=== PATIENT | female | born 1980 | race Caucasian/White ===

== ENCOUNTER 2018-10-13 07:49 | Emergency (ER) | payer OTHER ==
[~2018-10-13] VITALS: Ht 162.6 cm; Wt 77.1 kg
[2018-10-13 08:00] VITALS: BP 122/71
--- NOTE | 2018-10-13 08:23 | PHYS DOC ---
Past History Past Surgical History: Smoking: Cigarettes, Less than 1pk/day Alcohol Use: None Drug Use: None Adult General Chief Complaint Chief Complaint: PAIN ON URINATION HPI HPI Patient is a 38-year-old female who presents with dysuria since yesterday. Initially got better with increased fluid intake however became worse at approximately 3:00 this morning. Patient is noted some blood in the urine. Denies any back or flank pain. Denies any fever. Notes that she had urgency even before increasing her water intake. This is like her previous urinary tract infections. Patient denies any vaginal bleeding or discharge. Symptoms are mild to moderate. No home medicines have been attempted.[] Review of Systems Review of Systems Constitutional: Denies fever or chills [] Eyes: Denies change in visual acuity, redness, or eye pain [] HENT: Denies nasal congestion or sore throat [] Respiratory: Denies cough or shortness of breath [] Cardiovascular: No chest pain or palpitations[] GI: Denies abdominal pain, nausea, vomiting, bloody stools or diarrhea [] : See history of present illness[] Musculoskeletal: Denies back pain or joint pain [] Integument: Denies rash or skin lesions [] Neurologic: Denies headache, focal weakness or sensory changes [] Endocrine: Denies polyuria or polydipsia [] All other systems were reviewed and found to be within normal limits, except as documented in this note. Physical Exam Physical Exam Constitutional: Well developed, well nourished, no acute distress, non-toxic appearance. [] HENT: Normocephalic, atraumatic, bilateral external ears normal, oropharynx moist, no oral exudates, nose normal. [] Eyes: PERRLA, EOMI, conjunctiva normal, no discharge. [] Neck: Normal range of motion, no tenderness, supple, no stridor. [] Cardiovascular:Heart rate regular rhythm, no murmur [] Lungs & Thorax: Bilateral breath sounds clear to auscultation [] Abdomen: Bowel sounds normal, soft, no tenderness, no masses, no pulsatile masses. [] Skin: Warm, dry, no erythema, no rash. [] Back: No tenderness, no CVA tenderness. [] Extremities: No tenderness, no cyanosis, no clubbing, ROM intact, no edema. [] Neurologic: Alert and oriented X 3, normal motor function, normal sensory function, no focal deficits noted. [] Psychologic: Affect normal, judgement normal, mood normal. [] EKG EKG [] Radiology/Procedures Radiology/Procedures [] Course & Med Decision Making Course & Med Decision Making Pertinent Labs and Imaging studies reviewed. (See chart for details) ED course: Patient arrived, was placed in bed, and tolerated exam well. She remained in stable condition. After the return of lab studies, these were discussed with the patient who voiced understanding. All questions were answered. Patient was discharged in improved condition. Medical decision making: Patient appears to have urinary tract infection, no evidence of pyelonephritis, no evidence of systemic toxicity. Will prescribe Diflucan due to her history of having previous yeast infections with prior antibiotics.[] Dragon Disclaimer Dragon Disclaimer This electronic medical record was generated, in whole or in part, using a voice recognition dictation system. Departure Departure: Impression: Primary Impression: Urinary tract infection Disposition: HOME, SELF-CARE Condition: IMPROVED Referrals: JOSE MANUEL STANLEY PA-C (PCP) Follow-up in 2 days Patient Instructions: Urinary Tract Infection Additional Instructions: Drink plenty of fluids. Take the medication as prescribed. Eat yogurt, drink kefir or kombucha while on the antibiotics to help protect gut health. Do not take the Diflucan until after the antibiotics are completed, and only if you develop a yeast infection. Return to the ER if worsening pain or any other concerns. Scripts Fluconazole (DIFLUCAN) 150 Mg Tablet 1 TAB PO ONCE for candidiasis, #1 TAB 1 Refill Prov: JESS HENRY DO 10/13/18 Phenazopyridine Hcl (PYRIDIUM) 200 Mg Tablet 200 MG PO TID for dysurea for 2 Days, #6 TAB Prov: JESS HENRY DO 10/13/18 Cephalexin (KEFLEX) 500 Mg Capsule 500 MG PO TID for UTI for 7 Days, #21 CAP Prov: JESS HENRY DO 10/13/18 Problem Qualifiers Primary Impression: Urinary tract infection Urinary tract infection type: site unspecified Hematuria presence: with hematuria Qualified Codes: N39.0 - Urinary tract infection, site not specified ; R31.9 - Hematuria, unspecified JESS HENRY DO Oct 13, 2018 08:23
[2018-10-13 09:00] LABS: BILIRUBIN,URINE NEG (NEG); CLARITY,URINE CLOUDY; COLOR,URINE YELLOW; GLUCOSE,URINE NEG (NEG); NITRITE,URINE NEG (NEG); UROBILINOGEN,URINE 0.2 mg/dL (0.2 mg/dL)
[2018-10-13 09:01] LABS: BACTERIA,URINE MOD /HPF (0-FEW); SQUAMOUS EPITHELIAL CELL,UR FEW /LPF; WBC,URINE >40 /HPF (0-4)
[2018-10-13 09:02] LABS: U PREG PATIENT NEGATIVE (NEG)
[2018-10-13] MEDS ORDERED: PHEN-318 PO (09:15)
[2018-10-13] MEDS ORDERED: CEPH-264 PO (09:15)
[2018-10-13] MEDS ORDERED: FLUC150T PO (09:15)
== END 2018-10-13 09:35 | disposition home or self-care (01) ==
LOC: ER 07:49
DX: N39.0 Urinary tract infection, site not specified (principal); R31.9 Hematuria, unspecified; F17.210 Nicotine dependence, cigarettes, uncomplicated; Z87.440 Personal history of urinary (tract) infections; Z98.890 Other specified postprocedural states
CPT/HCPCS: 81001; 81025; 87086; 99283